=== PATIENT | female | born 1960 | race Hispanic/Latino ===

== ENCOUNTER 2018-08-12 07:16 | Observation (INO) | payer BC ==
[2018-08-12 07:39] LABS: #Basophils 0.1 thou/uL (0.0-0.2); #Eosinphils 0.2 thou/uL (0.0-0.7); #Lymphocytes 2.2 thou/uL (1.20-3.40); #Monocytes 0.5 thou/uL (0.11-0.59); #Neutrophils 3.5 thou/uL (1.40-6.50); %Basophils 1.6 % (0.0-1.0); %Eosinophils 3.2 % (0.0-10.0); %Lymphocytes 33.8 % (21.0-51.0); %Monocytes 7.1 % (0.0-10.0); %Neutrophils 54.3 % (42.0-75.0); Hemoglobin 14.4 g/dL (12.0-16.0); Mean Corpuscular HGB CONC 33.6 g/dL (32.0-36.0); Mean Corpuscular Hemoglobin 30.7 pg (27.0-31.0); Mean Corpuscular Volume 91.5 fL (78.0-98.0); Mean Platelet Volume 7.3 fL (7.4-10.4); Platelet Count 338 thou/uL (130-400); RBC Distribution Width 12.1 % (11.5-14.5); White Blood Cell (WBC) Count 6.4 thou/uL (4.8-10.8)
--- NOTE | 2018-08-12 07:53 | CT ---
CT BRAIN WITHOUT CONTRAST: Date: 08/12/18 HISTORY: Dizziness and headache. FINDINGS: No evidence of infarct, hemorrhage, midline shift, or abnormal extra-axial fluid collections are seen . The ventricular size is normal and the basilar cisterns are patent. The bony calvarium is intact. T he visualized paranasal sinuses and mastoid air cells are well aerated. IMPRESSION: No CT evidence of acute intracranial process. POS: [facility]
[2018-08-12] MEDS ORDERED: Metoclopramide HCl 10 MG/2 ML VIAL ONE (07:56)
[2018-08-12] MEDS ORDERED: Nitroglycerin 0.4 MG TAB (25 Tab Bottle) ONE (07:56)
[2018-08-12] MEDS ORDERED: Meclizine HCl 25 MG TAB ONE (07:56)
[2018-08-12 08:01] LABS: ALT (SGPT) 22 U/L (8-55); AST (SGOT) 20 U/L (5-34); Albumin 4.4 g/dL (3.5-5.0); Alkaline Phosphatase 115 U/L (40-150); Anion Gap 15 mmol/L (10-20); BUN (Urea Nitrogen) 5 mg/dL (9.8-20.1); Bilirubin, Total 0.5 mg/dL (0.2-1.2); Calc. Creatinine Clearance 0 mL/min (70-130); Calcium 9.5 mg/dL (7.8-10.44); Carbon Dioxide 21 mmol/L (22-29); Chloride 108 mmol/L (98-107); Estimated GFR-MDRD 67; Globulin 2.9 g/dL (2.4-3.5); Glucose 110 mg/dL (70-105); Potassium 4.5 mmol/L (3.5-5.1); Protein, Total 7.3 g/dL (6.0-8.3); Sodium 139 mmol/L (136-145)
--- NOTE | 2018-08-12 08:10 | RAD ---
PORTABLE CHEST 1 VIEW: Date: 08/12/18 Time: 0748 hours HISTORY: Chest pain. FINDINGS: The heart size is normal. The lungs are expanded without lobar consolidation, pneumothoraces, or pleu ral effusions. IMPRESSION: No acute process. POS: [facility]
[2018-08-12 10:10] LABS: Bilirubin Negative (Negative); Blood, Urine Negative (Negative); Clarity CLEAR (Clear); Glucose, Urine (Dipstick) Negative (Negative); Leukocyte Moderate (Negative); Nitrite Negative (Negative); Protein, Urine (Dipstick) Negative (Neg-Trace); Specific Gravity, Urine 1.007 (1.002-1.036); Urobilinogen 0.2 mg/dL (0.2-1.0)
[2018-08-12 10:13] LABS: Bacteria/HPF None Seen HPF (None Seen); Hyaline Casts/LPF 0-3 HYALINE CAST LPF (0-3 Hyaline); RBC/HPF 0-3 HPF (0-3); Squamous Epithelial None Seen HPF (0-3); WBC/HPF 0-3 HPF (0-3)
[2018-08-12 11:30] VITALS: BMI 25.0
[2018-08-12] MEDS ORDERED: Ondansetron PF 4 MG/2 ML Vial IVP PRN (11:46)
[2018-08-12] MEDS ORDERED: Ondansetron ODT 4 MG TAB PO PRN (11:46)
[2018-08-12] MEDS ORDERED: Acetaminophen 325 MG TAB PO PRN (11:46)
[2018-08-12] MEDS ORDERED: Ketorolac Tromethamine 15 MG/ML VIAL IVP PRN (11:52)
--- NOTE | 2018-08-12 16:18 | NM ---
CARDIAC SPECT: HISTORY: A 57-year-old female with chest pain. TECHNIQUE: A myocardial perfusion scan was performed using the single isotope one day protocol with technetium 9 9m sestamibi, and 9 millicuries was injected intravenously for the rest exam, followed by 31 millicur ies for the stress study. Exercise stress was monitored and interpreted by Dr. Flores. FINDINGS: Homogeneous tracer distribution is seen in the myocardial segments on stress and rest images without fixed or reversible defects. GATED SPECT LVEF: 80%. WALL MOTION EXAM: Normal. IMPRESSION: Normal myocardial perfusion scan. POS: [facility]
[2018-08-12] MEDS ORDERED: Ketorolac Tromethamine 30 MG/ML VIAL IVP PRN (16:45)
[2018-08-12] MEDS ORDERED: Atorvastatin Calcium 10 MG TAB PO SCH (21:00)
[2018-08-12] MEDS: Famotidine 20 MG TAB PO SCH (21:26)
[2018-08-12] MEDS: Famotidine/PF 20 mg/2ml Vial SLOW IVP SCH (21:27)
--- NOTE | 2018-08-12 22:56 | HP ---
PRIMARY CARE PHYSICIAN: Dr. Yousif Linton. CHIEF COMPLAINT: Chest pain, headache and dizziness. HISTORY OF PRESENT ILLNESS: Ms. Gallegos is a pleasant 57-year-old female with past medical history of anxiety and depression, hyperlipidemia, gastroesophageal reflux disease, hypokalemia, and iron deficiency anemia, who had presented to [facility] with chest pain, headache, and dizziness. She states that chest pain started earlier this morning when she was lying in bed, she had stated that the pain came on suddenly, but denied any radiation. She denied any shortness of breath or abdominal pain. She states when the pain came on, she had felt somewhat nauseous, her chest pain was resolved in the ER after a single dose of nitro. She had reported that her headache and dizziness had been chronic over the last 2-3 years, she states that she has seen her primary care physician, who thinks that this is likely secondary to her underlying depression and anxiety, which she was started on Wellbutrin and Cymbalta for. She states she has a headache usually every day, which is somewhat mild, she states her pain currently is 2/10 on the pain scale. She had denied any history of any heart disease. She had denied any cardiac workup in the past. She states she used to smoke; however, the Wellbutrin has helped with her urges. She denies any fever, chills, nausea, vomiting, or diarrhea, but she does report some frequency and urgency over the last couple days, her urinalysis in the emergency department did show moderate leukocyte esterase, otherwise unremarkable. A urine culture was obtained. Her lab work was essentially unremarkable, and her initial troponin was less than 0.010. She will be brought in for observation for further evaluation and management of her symptoms along with workup for her chest pain. PAST MEDICAL HISTORY: 1. Hypokalemia. 2. Anxiety and depression. 3. Iron deficiency anemia. 4. GERD. 5. Hyperlipidemia. PAST SURGICAL HISTORY: Appendectomy, cholecystectomy. SOCIAL HISTORY: Denies any alcohol, tobacco, or illicit drug use. REVIEW OF SYSTEMS: Positive for chest pain, headache, and dizziness. Otherwise, negative for any other review of systems except mentioned in HPI. ALLERGIES: NO KNOWN DRUG ALLERGIES. HOME MEDICATIONS: 1. Ferrous sulfate 325 mg p.o. daily. 2. Potassium chloride 20 mEq p.o. daily. 3. Omeprazole 40 mg p.o. daily. 4. Bupropion 300 mg p.o. daily. 5. Duloxetine 30 mg p.o. daily. 6. Atorvastatin 10 mg p.o. q.p.m. PHYSICAL EXAMINATION: VITAL SIGNS: BP 132/78, pulse 80, respirations 18, temp 98.2 degrees Fahrenheit, O2 saturations 96% on room air. GENERAL: Well groomed, well nourished, and does not appear to be in any acute distress. HEENT: Atraumatic, normocephalic. Pupils equal, round, and reactive to light. Extraocular muscles intact. Ear, nose, and throat clear. Oropharynx is without exudates and erythema. Uvula is midline. Moist mucous membranes noted. NECK: Soft, supple. Normal range of motion. No bruit. Nontender. No JVD noted. CARDIOVASCULAR: Positive S1, S2. Regular rate and rhythm. No murmur. No rubs. No gallops. LUNGS: Clear to auscultation bilaterally. No rhonchi. No wheezes. ABDOMEN: Soft, nontender, nondistended. Bowel sounds present. EXTREMITIES: No edema noted. Radial and pedal pulses palpable. Moves all extremities equally. NEUROLOGICAL: Cranial nerves 2 through 12 intact. No focal deficits noted. Strength 5+ bilaterally. Alert and oriented x3. PSYCHIATRIC: Good mood and affect. SKIN: Warm, dry, and intact. No bruises. No cuts. No lesions. LABORATORY DATA: WBC 6.4, RBC 4.7, hemoglobin 14.4, platelet 338. Sodium 139, potassium 4.5, BUN 5, creatinine 0.87, estimated GFR 67, glucose 110. Troponin less than 0.010 x2. AST 20, ALT 22. Urinalysis showed moderate leukocyte esterase, otherwise unremarkable. DIAGNOSTIC IMAGING: CT brain without contrast showed no CT evidence of acute intracranial process. Chest x-ray showed no acute process. ASSESSMENT AND PLAN: 1. Chest pain, we will rule out cardiac etiology with stress test and echocardiogram. We will start the patient on aspirin 81 mg daily and also continue her home medications. We will monitor the patient's vital signs closely and further management pending clinical findings. 2. Chronic headache. We will order IV Toradol and also continue on home medications. I did also discuss that this is a chronic issue with the patient and if cardiac workup is unremarkable, she will likely follow up with her primary care physician for further workup and evaluation of her chronic headache. 3. Dizziness. This is also a chronic issue, she is currently asymptomatic at this time. We will monitor the patient closely and further management pending her progress. As above, she will likely follow up with her PCP for further workup. 4. History of gastroesophageal reflux disease, continue on PPI and monitor the patient's symptoms. This could possibly be a cause of her symptoms. Therefore, pending on her progress, may also consider a GI consult for further evaluation. 5. Hypokalemia, potassium is currently 4.5, we will keep the patient on her home medication including potassium chloride 20 mEq p.o. daily. 6. History of iron deficiency anemia. We will also continue on her home iron supplementation and monitor labs closely. We will also recheck iron studies. 7. History of anxiety and depression. Continue on the patient's home Wellbutrin and Cymbalta. 8. History of hyperlipidemia. Continue with atorvastatin 10 mg p.o. q.p.m. 9. Deep vein thrombosis prophylaxis with Lovenox daily. 10. Gastrointestinal prophylaxis with PPI and Zofran as needed for nausea. 11. Code status is full code. DISPOSITION: Further medical management is pending based off clinical findings. Job ID: [id number]
[2018-08-13 05:28] LABS: #Basophils 0.1 thou/uL (0.0-0.2); #Eosinphils 0.2 thou/uL (0.0-0.7); #Monocytes 0.4 thou/uL (0.11-0.59); #Neutrophils 2.8 thou/uL (1.40-6.50); %Basophils 1.7 % (0.0-1.0); %Lymphocytes 36.4 % (21.0-51.0); %Monocytes 7.9 % (0.0-10.0); Hemoglobin 13.8 g/dL (12.0-16.0); Mean Corpuscular HGB CONC 34.3 g/dL (32.0-36.0); Mean Corpuscular Hemoglobin 31.5 pg (27.0-31.0); Mean Corpuscular Volume 91.9 fL (78.0-98.0); Mean Platelet Volume 7.1 fL (7.4-10.4); Platelet Count 293 thou/uL (130-400); RBC Distribution Width 11.9 % (11.5-14.5); Red Blood Cell (RBC) Count 4.37 mill/uL (4.20-5.40); White Blood Cell (WBC) Count 5.6 thou/uL (4.8-10.8)
[2018-08-13 05:51] LABS: Anion Gap 13 mmol/L (10-20); BUN (Urea Nitrogen) 10 mg/dL (9.8-20.1); Calc. Creatinine Clearance 70 mL/min (70-130); Calcium 9.5 mg/dL (7.8-10.44); Carbon Dioxide 24 mmol/L (22-29); Chloride 107 mmol/L (98-107); Estimated GFR-MDRD 63; Glucose 100 mg/dL (70-105); Potassium 4.3 mmol/L (3.5-5.1); Sodium 140 mmol/L (136-145)
[2018-08-13] MEDS: Famotidine 20 MG TAB PO SCH (08:31)
[2018-08-13] MEDS: Famotidine/PF 20 mg/2ml Vial SLOW IVP SCH (08:32)
[2018-08-13] MEDS ORDERED: Potassium Chloride 20 MEQ TAB PO SCH (09:00)
[2018-08-13] MEDS ORDERED: Ferrous Sulfate 325 MG TAB PO SCH (09:00)
[2018-08-13] MEDS ORDERED: Non-Formulary Item 1 EACH (Bupropion Hcl [Bupropion Hcl Xl] 300 MG) PO SCH (09:00)
[2018-08-13] MEDS ORDERED: Enoxaparin Sodium 40 MG/0.4 ML SYRINGE SC SCH (09:00)
[2018-08-13] MEDS ORDERED: Non-Formulary Item 1 EACH (Ferrous Sulfate [Iron] 325 MG) PO SCH (09:00)
[2018-08-13] MEDS ORDERED: Bupropion 150 MG XL TAB PO SCH (09:00)
[2018-08-13] MEDS ORDERED: DULoxetine 30 MG CAP PO SCH (09:00)
[2018-08-13 11:54] VITALS: BP 120/80; TEMP 97.8
--- NOTE | 2018-08-16 17:16 | EKG ---
Test Reason : Blood Pressure : / mmHG Vent. Rate : 093 BPM Atrial Rate : 093 BPM P-R Int : 110 ms QRS Dur : 088 ms QT Int : 326 ms P-R-T Axes : 062 -23 -09 degrees QTc Int : 405 ms Sinus rhythm with short NM Possible Left atrial enlargement Left ventricular hypertrophy Abnormal ECG Confirmed by HECTOR BAUMAN ([id number]), news editor PERNELL MAO ([id number]) on 08/16/2018 5:16:08 PM Referred By: Confirmed By:HECTOR BAUMAN
== END 2018-08-13 12:34 | disposition home or self-care (01) ==
LOC: ERS 07:16 → 2SW 09:30
PROVIDERS: ADMIT Internal Medicine Infectious Disease; ATTEND Internal Medicine Infectious Disease
DX: R07.9 Chest pain, unspecified (principal); R51 Headache; R42 Dizziness and giddiness; E87.6 Hypokalemia; F41.9 Anxiety disorder, unspecified; F32.9 Major depressive disorder, single episode, unspecified; E78.5 Hyperlipidemia, unspecified; K21.9 Gastro-esophageal reflux disease without esophagitis; D50.9 Iron deficiency anemia, unspecified; Z90.49 Acquired absence of other specified parts of digestive tract; Z79.899 Other long term (current) drug therapy
CPT/HCPCS: 36415; 70450; 71045; 78452; 80048; 80053; 81003; 81015; 84484; 85025; 87086; 93005; 93017; 93306; 96365; 96372; 96375; A9500; G0378; J1650; J1885; J2765

== ENCOUNTER 2019-04-19 12:40 | Emergency (ER) | payer BC ==
[2019-04-19] MEDS ORDERED: Meclizine HCl 25 MG TAB ONE (15:38)
[2019-04-19] MEDS ORDERED: Ondansetron PF 4 MG/2 ML Vial ONE (15:38)
[2019-04-19 15:43] LABS: #Basophils 0.1 thou/uL (0.0-0.2); #Eosinphils 0.2 thou/uL (0.0-0.7); #Lymphocytes 2.7 thou/uL (1.20-3.40); #Monocytes 0.6 thou/uL (0.11-0.59); #Neutrophils 5.7 thou/uL (1.40-6.50); %Basophils 1.5 % (0.0-1.0); %Eosinophils 2.3 % (0.0-10.0); %Lymphocytes 28.4 % (21.0-51.0); %Monocytes 6.5 % (0.0-10.0); %Neutrophils 61.3 % (42.0-75.0); Hemoglobin 14.9 g/dL (12.0-16.0); Mean Corpuscular HGB CONC 35.6 g/dL (32.0-36.0); Mean Corpuscular Hemoglobin 32.9 pg (27.0-31.0); Mean Corpuscular Volume 92.4 fL (78.0-98.0); Mean Platelet Volume 7.9 fL (7.4-10.4); Platelet Count 293 thou/uL (130-400); Red Blood Cell (RBC) Count 4.51 mill/uL (4.20-5.40); White Blood Cell (WBC) Count 9.3 thou/uL (4.8-10.8)
[2019-04-19 16:02] LABS: ALT (SGPT) 26 U/L (8-55); AST (SGOT) 21 U/L (5-34); Albumin 4.8 g/dL (3.5-5.0); Alkaline Phosphatase 106 U/L (40-150); Anion Gap 15 mmol/L (10-20); BUN (Urea Nitrogen) 8 mg/dL (9.8-20.1); Bilirubin, Total 0.3 mg/dL (0.2-1.2); Calc. Creatinine Clearance 0 mL/min (70-130); Calcium 9.8 mg/dL (7.8-10.44); Carbon Dioxide 22 mmol/L (22-29); Chloride 106 mmol/L (98-107); Estimated GFR-MDRD 75; Globulin 2.7 g/dL (2.4-3.5); Glucose 71 mg/dL (70-105); Potassium 3.9 mmol/L (3.5-5.1); Protein, Total 7.5 g/dL (6.0-8.3); Sodium 139 mmol/L (136-145)
--- NOTE | 2019-04-19 16:09 | CT ---
CT BRAIN WITHOUT CONTRAST: History: Headache. FINDINGS: Comparison is made with exam of 08-12-18. No evidence of acute infarct, hemorrhage, midline shift, or abnormal extraaxial fluid collections are seen. The ventricular size is normal and the basilar cisterns patent. The bony calvarium is intact. The visualized paranasal sinuses and mastoid air cells are well aerated. IMPRESSION: No CT evidence of acute intracranial process. POS: [facility]
== END 2019-04-19 18:06 | disposition home or self-care (01) ==
LOC: ERS 12:40
DX: R42 Dizziness and giddiness (principal); R51 Headache; F41.9 Anxiety disorder, unspecified; Z79.899 Other long term (current) drug therapy
CPT/HCPCS: 70450; 80053; 85025; 96361; 96374; J2405; J8597

== ENCOUNTER 2019-10-04 01:19 | Emergency (ER) | payer BC ==
[2019-10-04] MEDS ORDERED: Lidocaine Viscous Sol 2% 15 ml UD Cup ONE (02:40)
[2019-10-04] MEDS ORDERED: Mag-Al 1200 mg/1200 mg/30 ML UDCUP ONE (02:40)
== END 2019-10-04 03:16 | disposition home or self-care (01) ==
LOC: ERS 01:19
DX: K21.9 Gastro-esophageal reflux disease without esophagitis (principal); F41.9 Anxiety disorder, unspecified; Z79.899 Other long term (current) drug therapy
CPT/HCPCS: 99283